=== PATIENT | female | born 1990 | race African-American/Black ===

== ENCOUNTER 2017-05-18 15:51 | Emergency (ER) | payer OTHER ==
[2017-05-18 16:07] VITALS: BMI 23.1
--- NOTE | 2017-05-18 16:09 | PDOC ---
History of Present Illness - General Chief Complaint: Pain, Acute Stated Complaint: NAUSEA/VOMITING Time Seen by Provider: 05/18/17 16:09 Past History - Past Medical History Allergies/Adverse Reactions: Allergies Allergy/AdvReac Type Severity Reaction Status Date / Time No Known Allergies Allergy Verified 05/18/17 16:04 Home Medications: Ambulatory Orders Naproxen [Naprosyn -] 500 mg PO BID #14 tablet 09/30/14 - Psycho/Social/Smoking Cessation Hx Anxiety: No Suicidal Ideation: No Smoking Status: No Smoking History: Current every day smoker Have you smoked in the past 12 months: Yes Number of Cigarettes Smoked Daily: 4 Information on smoking cessation initiated: No Hx Alcohol Use: Yes (occasion) Substance Use Type: None *Physical Exam - Vital Signs Last Vital Signs Temp Pulse Resp BP Pulse Ox 97.9 F 88 19 126/76 100 05/18/17 16:04 05/18/17 16:04 05/18/17 16:04 05/18/17 16:04 05/18/17 16:04
--- NOTE | 2017-05-18 16:13 | PDOC ---
History of Present Illness - General Chief Complaint: Pain, Acute Stated Complaint: NAUSEA/VOMITING Time Seen by Provider: 05/18/17 16:09 History Source: Patient - History of Present Illness Timing/Duration: reports: getting worse Quality: reports: severe Abdominal Pain Onset Location: reports: generalized abdomen Past History - Past Medical History Allergies/Adverse Reactions: Allergies Allergy/AdvReac Type Severity Reaction Status Date / Time No Known Allergies Allergy Verified 05/18/17 16:04 Home Medications: Ambulatory Orders Naproxen [Naprosyn -] 500 mg PO BID #14 tablet 09/30/14 - Psycho/Social/Smoking Cessation Hx Anxiety: No Suicidal Ideation: No Smoking Status: No Smoking History: Current every day smoker Have you smoked in the past 12 months: Yes Number of Cigarettes Smoked Daily: 4 Information on smoking cessation initiated: No Hx Alcohol Use: Yes (occasion) Substance Use Type: None Review of Systems - Review of Systems Constitutional: No: Chills, Fever ABD/GI: Yes: Diarrhea, Nausea, Vomiting, Abdominal cramping. No: Blood Streaked Bowels, Constipated, Rectal Bleeding : No: Dysuria *Physical Exam - Vital Signs Last Vital Signs Temp Pulse Resp BP Pulse Ox 97.9 F 88 19 126/76 100 05/18/17 16:04 05/18/17 16:04 05/18/17 16:04 05/18/17 16:04 05/18/17 16:04 - Physical Exam General Appearance: Yes: Appropriately Dressed, Severe Distress HEENT: positive: Normal Voice. negative: Scleral Icterus (R), Scleral Icterus ( L) Neck: positive: Supple Respiratory/Chest: positive: Lungs Clear, Normal Breath Sounds. negative: Respiratory Distress Cardiovascular: positive: Regular Rate, S1, S2 Gastrointestinal/Abdominal: positive: Normal Bowel Sounds, Tender (to epigastrium and L mid abd, NT over mcburneys, No ttp to RUQ and neg murpheys), Soft. negative: Distended, Guarding, Rebound Musculoskeletal: negative: CVA Tenderness Integumentary: positive: Dry, Warm Neurologic: positive: Fully Oriented, Alert, Normal Mood/Affect ED Treatment Course - LABORATORY CBC & Chemistry Diagram: 05/18/17 16:20 05/18/17 16:20 Medical Decision Making - Medical Decision Making 05/18/17 16:14 27-year-old female, denies any past medical history, here with severe abdominal pain with numerous episodes of nausea, vomiting that started this morning. Also complaining of multiple episodes of loose stool. No hematochezia, melena, fever or chills. Denies similar episode in the past. Patient does admit to eating a brownie containing marijuana last night while drinking alcohol and states she does smoke marijuana on a near daily basis. See exam Abd pain w/ intractable n/v Cannabinoid hyperemesis syndrome vs gastritis vs pancreatitis vs appy though less likely as NT over [facility] -IVF -pain control -zofran -labs -?CT 05/18/17 17:23 Labs normal, lipase/ua still pending. Pt reports feeling sig better and appears more comfortable. Abd benign on rpt exam, continues to be NT over [facility] 05/18/17 17:59 Patient refusing Ativan or to wait for urine preg. Appears well and states she feels significantly better and would like to go home. Pt informed that her daily use of cannibus could be causing her sxs and that she should refrain from drug use 05/18/17 18:00 05/18/17 18:05 *DC/Admit/Observation/Transfer Diagnosis at time of Disposition: Nausea & vomiting Qualifiers: Vomiting type: unspecified Vomiting Intractability: intractable Qualified Code( s): R11.2 - Nausea with vomiting, unspecified - Discharge Dispostion Disposition: HOME Condition at time of disposition: Improved - Patient Instructions Additional Instructions: The cause of your symptoms could be due to marijuana use. Please refrain from substance in the future Follow up with your PMD
[2017-05-18] MEDS ORDERED: ONDANSETRON 4 MG/2 ML VIAL IVPUSH ONE (16:14)
[2017-05-18] MEDS ORDERED: SODIUM CHLORIDE 1,000 ML IV STA (16:14)
[2017-05-18] MEDS ORDERED: KETOROLAC TROMETHAMINE 30 MG/1 ML VIAL IVPUSH ONE (16:14)
[2017-05-18] MEDS ORDERED: ONDANSETRON 4 MG/2 ML VIAL ONE (16:30)
[2017-05-18] MEDS ORDERED: KETOROLAC TROMETHAMINE 30 MG/1 ML VIAL ONE (16:30)
[2017-05-18 16:44] LABS: BASOPHIL 0.3 % (0-2.0); EOSINOPHIL 0.1 % (0-4.5); MCH 27.6 pg (25.7-33.7); MCHC 33.2 g/dl (32.0-36.0); MEAN CELL VOLUME 83.2 fl (80-96); MEAN PLT VOLUME 8.4 fl (7.5-11.1); NEUTROPHILS 84.7 % (42.8-82.8); PLATELET COUNT 232 K/MM3 (134-434); RDW 15.7 % (11.6-15.6); WHITE BLOOD COUNT 5.6 K/mm3 (4.0-10.0)
[2017-05-18 17:11] LABS: ALBUMIN 4.2 g/dl (3.4-5.0); ALK PHOS 74 U/L (45-117); ANION GAP 11 (8-16); BILIRUBIN,TOTAL 0.2 mg/dL (0.2-1.0); CALCIUM 9.5 mg/dL (8.5-10.1); CO2 20 mmol/L (21-32); CREATININE 0.8 mg/dL (0.55-1.02); GLUCOSE,RANDOM 103 mg/dL (74-106); SGOT/AST 17 U/L (15-37); SGPT/ALT 24 U/L (12-78); TOT PROT 8.3 g/dl (6.4-8.2)
--- NOTE | 2017-05-18 17:28 | PDOC ---
*Physical Exam - Vital Signs Last Vital Signs Temp Pulse Resp BP Pulse Ox 97.9 F 88 19 126/76 100 05/18/17 16:04 05/18/17 16:04 05/18/17 16:04 05/18/17 16:04 05/18/17 16:04 - Physical Exam Comments: 05/18/17 17:27 The patient was examined by [ENDY Love] under my direct supervision. I personally evaluated the patient. I concur with the above findings and the plan of care. ED Treatment Course - LABORATORY CBC & Chemistry Diagram: 05/18/17 16:20 05/18/17 16:20 - ADDITIONAL ORDERS Additional order review: Laboratory Results 05/18/17 05/18/17 17:10 16:20 Sodium 139 Potassium 3.7 Chloride 108 H Carbon Dioxide 20 L Anion Gap 11 BUN 8 D Creatinine 0.8 D Creat Clearance w eGFR > 60 Random Glucose 103 D Calcium 9.5 Total Bilirubin 0.2 D AST 17 D ALT 24 D Alkaline Phosphatase 74 Total Protein 8.3 H Albumin 4.2 Lipase 60 L 05/18/17 16:20 RBC 4.63 MCV 83.2 MCHC 33.2 RDW 15.7 H D MPV 8.4 Neutrophils % 84.7 H Lymphocytes % 10.4 D Monocytes % 4.5 Eosinophils % 0.1 Basophils % 0.3 - Medications Given in the ED: ED Medications Discontinued Medications Generic Name Dose Route Start Last Admin Trade Name Freq PRN Reason Stop Dose Admin Sodium Chloride 1,000 mls @ 1,000 mls/hr 05/18/17 16:14 05/18/17 16:46 Normal Saline - IV 05/18/17 17:13 1,000 mls/hr ASDIR STA Administration Ketorolac Tromethamine 30 mg 05/18/17 16:14 05/18/17 16:46 Toradol Injection - IVPUSH 05/18/17 16:15 30 mg ONCE ONE Administration Ondansetron HCl 4 mg 05/18/17 16:14 05/18/17 16:46 Zofran Injection IVPUSH 05/18/17 16:15 4 mg ONCE ONE Administration *DC/Admit/Observation/Transfer Diagnosis at time of Disposition: Nausea & vomiting - Discharge Dispostion Disposition: HOME Condition at time of disposition: Improved - Referrals Referrals: Mat Padron [Primary Care Provider] - - Patient Instructions Additional Instructions: The cause of your symptoms could be due to marijuana use. Please refrain from substance in the future Follow up with your PMD
[2017-05-18] MEDS ORDERED: LORazepam 1 MG TABLET PO ONE (17:56)
[2017-05-18] MEDS ORDERED: LORazepam 0.5 MG TABLET ONE (17:56)
[2017-05-18 18:15] VITALS: BP 122/66; PULSE 78; TEMP 98.6
== END 2017-05-18 18:13 | disposition home or self-care (01) ==
LOC: JER 15:51
PROC: 3E0333Z Introduction of Anti-inflammatory into Peripheral Vein, Percutaneous Approach (ICD-10-PCS; principal; 2017-05-18)
PROC: 3E033GC Introduction of Other Therapeutic Substance into Peripheral Vein, Percutaneous Approach (ICD-10-PCS; 2017-05-18)
PROC: 3E0337Z Introduction of Electrolytic and Water Balance Substance into Peripheral Vein, Percutaneous Approach (ICD-10-PCS; 2017-05-18)
DX: R11.2 Nausea with vomiting, unspecified (principal); F17.210 Nicotine dependence, cigarettes, uncomplicated
CPT/HCPCS: 36415; 80053; 83690; 84703; 85025; 96361; 96374; 96375; 99283-25

== ENCOUNTER 2019-07-29 09:10 | Inpatient (IN) | payer OTHER ==
[~2019-07-29 09:10] MED LIST: CITRIC ACID/SODIUM CITRATE 30 ML UNIT-DOSE CUP PO ONE; ELECTROLYTE-148 SOLN 1,000 ML IV SCH
[2019-07-29 09:52] VITALS: BMI 28.7
[2019-07-29] MEDS ORDERED: ELECTROLYTE-148 SOLN 1,000 ML IV SCH ×2 (10:10→10:45)
[2019-07-29] MEDS ORDERED: CITRIC ACID/SODIUM CITRATE 30 ML UNIT-DOSE CUP PO ONE (10:43)
--- NOTE | 2019-07-29 10:50 | HP ---
Past Medical History - Primary Care Physician PCP:: Michael Bernardo - Admission Chief Complaint: 39 weeks, previous c/s, request of repeat c/s History of Present Illness: 29 yo f edc by sono 07/30/19 39.6 weeks, with one previous c/s , request of repeat c/s, encourged , risks associated with C/S discussed, cx clp vx -3 mi , fhr cat1 History Source: Patient Limitations to Obtaining History: No Limitations - Past Medical History ...: 5 ...Para: 1 ...Term: 1 ...: 0 ...Spon : 0 ...Induced : 3 ...LMP: 10/23/18 ... Weeks Gestation by Dates: 39.6 ...EDC by Dates: 07/30/19 ...EDC by Sono: 07/30/19 Heme/Onc: Yes: Anemia - Past Surgical History Past Surgical History: Yes: Hx Myomectomy: No Hx Transabdominal Cerclage: No - Smoking History Smoking history: Never smoked Have you smoked in the past 12 months: No Aproximately how many cigarettes per day: 4 - Alcohol/Substance Use Hx Alcohol Use: No - Social History Usual Living Arrangement: Yes: With Spouse History of Recent Travel: No Home Medications - Allergies Allergies/Adverse Reactions: Allergies Allergy/AdvReac Type Severity Reaction Status Date / Time No Known Allergies Allergy Verified 07/29/19 09:53 - Home Medications Home Medications: Ambulatory Orders NK [No Known Home Medication] 07/19/19 Review of Systems - Review of Systems Constitutional: reports: No Symptoms Eyes: reports: No Symptoms HENT: reports: No Symptoms Neck: reports: No Symptoms Cardiovascular: reports: No Symptoms Respiratory: reports: No Symptoms Gastrointestinal: reports: No Symptoms Genitourinary: reports: No Symptoms Breasts: reports: No Symptoms Reported Musculoskeletal: reports: No Symptoms Integumentary: reports: No Symptoms Neurological: reports: No Symptoms Endocrine: reports: No Symptoms Hematology/Lymphatic: reports: No Symptoms Psychiatric: reports: No Symptoms Physical Exam - Maternity Vital Signs: Vital Signs Temperature 98.4 F 07/29/19 09:10 Pulse Rate 81 07/29/19 09:10 Respiratory Rate 18 07/29/19 09:10 Blood Pressure 134/86 07/29/19 09:10 O2 Sat by Pulse Oximetry (%) Constitutional: Yes: Well Nourished, No Distress, Calm Eyes: Yes: WNL, Conjunctiva Clear, EOM Intact HENT: Yes: WNL, Atraumatic, Normocephalic Neck: Yes: WNL, Supple, Trachea Midline Cardiovascular: Yes: WNL, Regular Rate and Rhythm Breast(s): Yes: WNL - Abdominal Exam/OB Fundal Height: 38 Number of Fetuses: Single Presentation: Vertex Contractions: Yes Regularity: Irregular Intensity: Unaware Monitor Mode: External Heart Rate Location: [facility] Category: I Accelerations: Non-Uniform Decelerations: None - Vaginal Exam/OB Vaginal Bleediing: No Speculum Exam: No Dilatation (cm): 0 Effacement (%): 0 Amniotic Membrane Status: Intact Presentation: Vertex/Position Station: -3 - Physical Exam Musculoskeletal: Yes: WNL Extremities: Yes: WNL Edema: Yes Edema: LLE: Trace, RLE: Trace Deep Tendon Reflex Grade: Normal +2 Psychiatric: Yes: WNL Hemorrhage Risk Assessment - Risk Factors Medium Risk Factors: Yes: Prior , uterine surgery,or multiple laparotomies High Risk Factors: Yes: None Risk Score: 1 Risk Level: Medium Risk Problem List - Problems (1) with 39 completed weeks gestation Code(s): Z3A.39 - 39 WEEKS GESTATION OF (2) Previous section complicating Code(s): O34.219 - MATERNAL CARE FOR UNSP TYPE SCAR FROM PREVIOUS DEL Assessment/Plan repeat c/s , risks discussed ,
[2019-07-29] MEDS ORDERED: morphine SULFATE/PF 0.5 MG/ML (2cc Syringe - QUVA) ONE (10:51)
[2019-07-29] MEDS ORDERED: ceFAZolin SODIUM 1 GM VIAL ONE ×2 (11:04)
[2019-07-29] MEDS ORDERED: ONDANSETRON 4 MG/2 ML VIAL IVPUSH PRN (11:06)
[2019-07-29] MEDS ORDERED: METHYLERGONOVINE MALEATE 0.2 MG/1 ML AMP IM PRN (11:51)
[2019-07-29] MEDS ORDERED: BENZOCAINE 28 GM HEMORRHOIDAL OINTMENT PR PRN (11:51)
[2019-07-29] MEDS ORDERED: BENZOCAINE 20% 57 GM BOTTLE TP PRN (11:51)
[2019-07-29] MEDS ORDERED: diphenhydrAMINE HCL 25 MG CAPSULE (FP) PO PRN (11:51)
[2019-07-29] MEDS ORDERED: WITCH HAZEL 50% (TUCKS) 40 PAD/JAR PAD TP PRN (11:51)
--- NOTE | 2019-07-29 11:56 | OP ---
Operative Note - Note: Operative Date: 07/29/19 Pre-Operative Diagnosis: 39 weeks , previous c/s Operation: repeat LST c/s Findings: live baby girl 9/9 , both tubes and ovary normal Surgeon: Michael Bernadro Music Critic: Felton Yen Anesthesiologist/BLOCKER HAND: Mundo Nina Anesthesia: Spinal Specimens Removed: placenta Estimated Blood Loss (mls): 500 Drains & Tubes with Location: [place] Operative Report Dictated: Yes
[2019-07-29] MEDS ORDERED: OXYTOCIN 20 UNITS in 0.9% NS 20 UNIT/1,000 ML INFUS.BAG IV SCH (12:00)
[2019-07-29] MEDS: IBUPROFEN 800 MG/8 ML IJ IVPB PRN ×2 (12:25→19:58)
[2019-07-29] MEDS: DEXTROSE 5%-LACTATED RINGERS 1,000 ML IV SCH (13:12)
[2019-07-29] MEDS: CEFAZOLIN 1 GM/D5W 1 GM/50 ML BAG IVPB SCH (17:32)
[2019-07-29] MEDS ORDERED: CEFAZOLIN 1 GM/D5W 1 GM/50 ML BAG IVPB SCH (18:00)
--- NOTE | 2019-07-30 00:31 | PN ---
Post Progress Note - Subjective Subjective: Patient without acute complaints. Tolerating clears, without nausea or vomiting Hilton DC'd, voiding. Ambulating, no flatus yet. Denies fevers or chills. Pain well controlled. well Post Day: 1 Type of Delivery: Repeat C/S Vital Signs: Vital Signs Temperature 98.6 F 07/29/19 22:00 Pulse Rate 66 07/29/19 22:00 Respiratory Rate 18 07/30/19 00:00 Blood Pressure 140/85 07/29/19 22:00 O2 Sat by Pulse Oximetry (%) 98 07/29/19 21:00 Breast Exam: Yes: Soft Uterus: Yes: Fundus Firm, Fundus above umbilicus Incision: Yes: Dressing dry and intact Abdomen/GI: Yes: Abdomen soft, Abdominal Distention (mild soft), Tender (mild ) , Tolerating PO. No: Passing flatus Lochia: Yes: Rubra Lochia, amount: Moderate Extremities: Yes: Calves non-tender, Edema (trace) Activity: Ambulating Assessment/Plan 29 yo POD # 1 s/p repeat CD, afebrile, vital signs stable, doing well 1. Continue routine postoperative care. 2. Follow up AM CBC 3. Rh positive status, no rhogam indicated. 4. Encourage ambulation and incentive spirometer use 5. Continue oral pain medication 6. Anticipate discharge home postoperative day #3 or #4
[2019-07-30] MEDS: CEFAZOLIN 1 GM/D5W 1 GM/50 ML BAG IVPB SCH (01:38)
[2019-07-30] MEDS: IBUPROFEN 800 MG/8 ML IJ IVPB PRN (01:38)
[2019-07-30] MEDS: SIMETHICONE 80 MG TAB.CHEW (FP) PO PRN ×4 (07:58→22:51)
[2019-07-30] MEDS: IBUPROFEN 600 MG TABLET (FP) PO PRN ×4 (07:58→22:53)
[2019-07-30] MEDS: ACETAMINOPHEN 325 MG TABLET (FP) PO PRN ×2 (07:59→12:53)
[2019-07-30 08:24] LABS: BASO % 0.2 % (0-2.0); EOS % 1.6 % (0-4.5); HEMATOCRIT 26.2 % (32.4-45.2); HEMOGLOBIN 8.7 GM/dL (10.7-15.3); LYMPH % 15.2 % (8-40); MCH 26.7 pg (25.7-33.7); MCHC 33.3 g/dl (32.0-36.0); MEAN CELL VOLUME 80.3 fl (80-96); MEAN PLT VOLUME 7.7 fl (7.5-11.1); MONO % 10.8 % (3.8-10.2); NEUT % 72.2 % (42.8-82.8); PLATELET COUNT 222 K/MM3 (134-434); RBC 3.26 M/mm3 (3.60-5.2); RDW 14.9 % (11.6-15.6); WHITE BLOOD COUNT 7.4 K/mm3 (4.0-10.0)
--- NOTE | 2019-07-30 08:26 | PN ---
Progress Note (short form) - Note Progress Note: Anesthesia postop note 29 y/o F s/p spinal anesthesia/ duramorph for section POD#1 vss, aaox3, pain well controlled, sensory motor intact distally No anesthesia complications.
[2019-07-30] MEDS: ENOXAPARIN NA (PORCINE) 40 MG/0.4 ML DISP.SYRIN SQ SCH (09:42)
[2019-07-30] MEDS ORDERED: BISACODYL 10 MG SUPP.RECT PR PRN (11:51)
[2019-07-30] MEDS: oxyCODONE HCL 5 MG TABLET PO PRN ×2 (17:09→22:51)
[2019-07-31] MEDS: oxyCODONE HCL 5 MG TABLET PO PRN ×3 (08:42→21:46)
[2019-07-31] MEDS: SIMETHICONE 80 MG TAB.CHEW (FP) PO PRN ×3 (08:42→21:49)
[2019-07-31] MEDS: IBUPROFEN 600 MG TABLET (FP) PO PRN ×3 (08:42→21:48)
[2019-07-31] MEDS: ENOXAPARIN NA (PORCINE) 40 MG/0.4 ML DISP.SYRIN SQ SCH (10:00)
--- NOTE | 2019-07-31 16:17 | PN ---
Progress Note (short form) - Note Progress Note: pod 2. s/p repeat c/s. ambulating , doing well, no dizziness , no excess vaginal bleeding CBC, BMP 07/30/19 08:07 Last Vital Signs Temp Pulse Resp BP Pulse Ox 98.5 F 81 20 134/89 98 07/31/19 09:00 07/31/19 09:00 07/31/19 09:00 07/31/19 09:00 07/29/19 21:00 abdomen soft, no distension, no cva incision dry, clean no calf tenderness lochia mild impression anemia, asymptomatic, will repeat cbc in am iron, vit Problem List - Problems (1) with 39 completed weeks gestation Code(s): Z3A.39 - 39 WEEKS GESTATION OF (2) Previous section complicating Code(s): O34.219 - MATERNAL CARE FOR UNSP TYPE SCAR FROM PREVIOUS DEL
--- NOTE | 2019-07-31 17:15 | PATH ---
Surgical Pathology Report Patient Name: ZARIA CANELA Med. Rec. 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 Specimen(s) Received PLACENTA Clinical History , term 1, induced AB x3, previous 2010 Final Diagnosis PLACENTA, SECTION: 689 G THIRD TRIMESTER PLACENTA WITH TRIVASCULAR UMBILICAL CORD AND UNREMARKABLE PLACENTAL MEMBRANES. Electronically Signed Carey Vale M.D. Gross Description The specimen is received fresh labeled placenta and is a 689 gram, 19.0 x 16.5 x 2.8 cm. placenta with attached membranes and umbilical cord. The attached membranes are perez, translucent with focal opacities and insert marginally. The umbilical cord measures 41 cm. in length and averages 1 cm. in diameter. The cord inserts eccentrically, 6 cm. to the nearest margin. No true knots or strictures are identified. Cut surface of the umbilical cord reveals 3 vessels. The surface is darling-blue with minimal fibrin deposition and appropriate caliber vessels. The maternal surface is red-brown with focal defects. Sectioning reveals red-brown, spongy parenchyma. No lesions are identified. Electric Detector Operator sections are submitted in three cassettes as follows: 1- membrane rolls and umbilical cord; 2-3- full thickness sections of placenta. /07/30/2019 saudi07/30/2019
[2019-07-31] MEDS: DEXTROSE 5%-LACTATED RINGERS 1,000 ML IV SCH (20:13)
[2019-07-31] MEDS: ACETAMINOPHEN 325 MG TABLET (FP) PO PRN (21:47)
[2019-07-31] MEDS ORDERED: SENNOSIDES/DOCUSATE COMBO (SENNA PLUS) TABLET (UD) PO PRN (22:00)
[2019-08-01 07:35] LABS: BASO % 0.3 % (0-2.0); EOS % 3.4 % (0-4.5); LYMPH % 27.2 % (8-40); MCH 26.7 pg (25.7-33.7); MCHC 33.2 g/dl (32.0-36.0); MEAN CELL VOLUME 80.4 fl (80-96); MEAN PLT VOLUME 7.8 fl (7.5-11.1); NEUT % 59.1 % (42.8-82.8); PLATELET COUNT 255 K/MM3 (134-434); RBC 2.99 M/mm3 (3.60-5.2); RDW 15.1 % (11.6-15.6); WHITE BLOOD COUNT 5.6 K/mm3 (4.0-10.0)
[2019-08-01] MEDS: IBUPROFEN 600 MG TABLET (FP) PO PRN ×3 (08:00→20:44)
[2019-08-01] MEDS: oxyCODONE HCL 5 MG TABLET PO PRN (08:00)
[2019-08-01] MEDS: SIMETHICONE 80 MG TAB.CHEW (FP) PO PRN (08:01)
--- NOTE | 2019-08-01 08:06 | PN ---
Post Progress Note - Subjective Subjective: Patient without acute complaints. Reports tolerating oral intake without nausea or vomiting. Ambulating without dizziness. Denies fevers or chills. Pain well controlled with oral pain medication. without difficulty. Passing flatus. Post Day: 3 Type of Delivery: Repeat C/S Vital Signs: Vital Signs Temperature 98.0 F 07/31/19 22:00 Pulse Rate 82 07/31/19 22:00 Respiratory Rate 18 07/31/19 22:00 Blood Pressure 117/70 07/31/19 22:00 O2 Sat by Pulse Oximetry (%) 98 07/29/19 21:00 Breast Exam: Yes: Soft Uterus: Yes: Fundus Firm, Fundus below umbilicus Incision: Yes: Sal intact. No: Redness, Oozing Abdomen/GI: Yes: Abdomen soft, Abdominal Distention (mild soft), Tender (mild), Passing flatus, Tolerating PO Lochia: Yes: Rubra Lochia, amount: Moderate Extremities: Yes: Calves non-tender, Edema (trace) Activity: Ambulating - Labs Labs: CBC WBC 7.4 K/mm3 (4.0-10.0) 07/30/19 08:07 RBC 3.26 M/mm3 (3.60-5.2) L 07/30/19 08:07 Hgb 8.7 GM/dL (10.7-15.3) L 07/30/19 08:07 Hct 26.2 % (32.4-45.2) L 07/30/19 08:07 MCV 80.3 fl (80-96) 07/30/19 08:07 MCH 26.7 pg (25.7-33.7) 07/30/19 08:07 MCHC 33.3 g/dl (32.0-36.0) 07/30/19 08:07 RDW 14.9 % (11.6-15.6) 07/30/19 08:07 Plt Count 222 K/MM3 (134-434) 07/30/19 08:07 MPV 7.7 fl (7.5-11.1) 07/30/19 08:07 Absolute Neuts (auto) 5.4 K/mm3 (1.5-8.0) 07/30/19 08:07 Neutrophils % 72.2 % (42.8-82.8) 07/30/19 08:07 Lymphocytes % 15.2 % (8-40) D 07/30/19 08:07 Monocytes % 10.8 % (3.8-10.2) H 07/30/19 08:07 Eosinophils % 1.6 % (0-4.5) 07/30/19 08:07 Basophils % 0.2 % (0-2.0) 07/30/19 08:07 Nucleated RBC % 0 % (0-0) 07/30/19 08:07 Assessment/Plan 29 yo POD # 3 s/p repeat CD, afebrile, vital signs stable, asymptomatic anemia, doing well 1. Continue routine postoperative care. 2. Encourage ambulation and incentive spirometer use 3. Continue oral pain medication 4. Anticipate discharge home postoperative day #4
--- NOTE | 2019-08-01 08:08 | DS ---
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 Vital Signs: Vital Signs Temperature 98.0 F 07/31/19 22:00 Pulse Rate 82 07/31/19 22:00 Respiratory Rate 18 07/31/19 22:00 Blood Pressure 117/70 07/31/19 22:00 O2 Sat by Pulse Oximetry (%) 98 07/29/19 21:00 Delivery - Delivery Type of Anesthesia: Spinal EBL (cc): 500 Delivery, Single - Stages of Labor Date of Delivery: 07/29/19 Time of Delivery: 11:19 Time Placenta Delivered: 11:21 - Condition of Infant Decker Operator/Signal Wirer Present: Yes Name: Moni Bejarano Gender: Female Weight: 7 lb 7 oz Position: Right, OT Total Hours ROM (Hrs/Mins): 4 minutes - 1 Minute Total Score: 9 5 Minutes Total Score: 9 - Feeding Plan Initial Plan: Exclusive throughout hospitalization Discharge Summary Problems reviewed: Yes Reason For Visit: REPEAT Current Active Problems with 39 completed weeks gestation (Acute) Previous section complicating (Acute) Procedures: Principal: repeat Delivery Hospital Course: Patient was admitted for routine delivery POD # 1 patient ambulated, voiding, passing gas, tolerating oral intake and with adequate pain control. Noted to have mild asymptomatic anemia She fulfilled all criteria for discharge POD #3 Condition: Good - Instructions Diet, Activity, Other Instructions: Follow up Next week for staple removal Physical activity Resume your normal everyday activity as tolerated no heavy lifting or exercise until seen by your surgeon. You may walk unlimited henry of and climb stairs. You may resume driving the car when you feel safe and comfortable behind the wheel. No sexual activity as instructed. Wound care If you have a bandage, leave it on, and keep dry for 48-72 hours. After that time discard the outer bandage. If they are tapes on the skin under the out of bandage leave them in place. They will peel off in the next 7 to 10 days. Do Not Peel them off. You may shower the day after surgery. If there are tapes present on the skin, you may shower over them. Diet There are no dietary restrictions. Eat healthy, high-fiber foods. Drink 6 to 8 glasses of liquid each day. This will assist in keeping your bowels are regular. Pain management You may take Tylenol or acetaminophen or Ibuprofen (for example, Motrin, Advil etc.) from my pain prescription medication is ordered should be taken as prescribed for moderate to severe pain. Call MD for any of the following: Severe pain not relieved by medication Fever of 101 or higher Excessive bleeding or drainage on dressing Inability to urinate Referrals: Michael Bernardo MD [Staff Physician] - Disposition: HOME - Home Medications Comprehensive Discharge Medication List: Ambulatory Orders NK [No Known Home Medication] 07/19/19
[2019-08-01] MEDS: ENOXAPARIN NA (PORCINE) 40 MG/0.4 ML DISP.SYRIN SQ SCH (09:27)
[2019-08-01] MEDS: ACETAMINOPHEN 325 MG TABLET (FP) PO PRN ×2 (14:31→20:44)
[2019-08-02] MEDS: SIMETHICONE 80 MG TAB.CHEW (FP) PO PRN ×2 (04:33→12:31)
[2019-08-02] MEDS: ACETAMINOPHEN 325 MG TABLET (FP) PO PRN ×2 (04:33→12:32)
[2019-08-02] MEDS: IBUPROFEN 600 MG TABLET (FP) PO PRN ×2 (04:34→12:31)
[2019-08-02] MEDS: ENOXAPARIN NA (PORCINE) 40 MG/0.4 ML DISP.SYRIN SQ SCH (09:04)
[2019-08-02 10:13] VITALS: BP 137/84; PULSE 76; TEMP 98.1
--- NOTE | 2019-08-02 10:37 | PN ---
Post Progress Note - Subjective Subjective: Patient without acute complaints. Reports tolerating oral intake without nausea or vomiting. Ambulating without dizziness. Denies fevers or chills. Pain well controlled with oral pain medication. without difficulty. Passing flatus, + BM Post Day: 4 Type of Delivery: Repeat C/S Vital Signs: Vital Signs Temperature 98.1 F 08/02/19 10:00 Pulse Rate 76 08/02/19 10:00 Respiratory Rate 18 08/02/19 10:00 Blood Pressure 137/84 08/02/19 10:00 O2 Sat by Pulse Oximetry (%) 98 07/29/19 21:00 Breast Exam: Yes: Engorged Uterus: Yes: Fundus Firm Incision: Yes: [place] intact, Redness, Oozing Abdomen/GI: Yes: Abdomen soft, Tender (mild incisinoal ), Passing flatus, Tolerating PO. No: Abdominal Distention Lochia: Yes: Rubra Lochia, amount: Moderate Extremities: Yes: Calves non-tender, Edema (trace) Activity: Ambulating - Labs Labs: CBC WBC 5.6 K/mm3 (4.0-10.0) 08/01/19 06:00 RBC 2.99 M/mm3 (3.60-5.2) L 08/01/19 06:00 Hgb 8.0 GM/dL (10.7-15.3) L 08/01/19 06:00 Hct 24.0 % (32.4-45.2) L 08/01/19 06:00 MCV 80.4 fl (80-96) 08/01/19 06:00 MCH 26.7 pg (25.7-33.7) 08/01/19 06:00 MCHC 33.2 g/dl (32.0-36.0) 08/01/19 06:00 RDW 15.1 % (11.6-15.6) 08/01/19 06:00 Plt Count 255 K/MM3 (134-434) 08/01/19 06:00 MPV 7.8 fl (7.5-11.1) 08/01/19 06:00 Absolute Neuts (auto) 3.3 K/mm3 (1.5-8.0) 08/01/19 06:00 Neutrophils % 59.1 % (42.8-82.8) 08/01/19 06:00 Lymphocytes % 27.2 % (8-40) D 08/01/19 06:00 Monocytes % 10.0 % (3.8-10.2) 08/01/19 06:00 Eosinophils % 3.4 % (0-4.5) D 08/01/19 06:00 Basophils % 0.3 % (0-2.0) 08/01/19 06:00 Nucleated RBC % 0 % (0-0) 08/01/19 06:00 Assessment/Plan 29 yo POD # 4 s/p repeat CD, afebrile, vital signs stable, asymptomatic anemia, doing well 1. Patient stable for discharge home today. 2. Patient encouraged to contact MD for: - Severe pain not controlled by oral pain medication - Fevers or chills - Nausea or vomiting, intolerance of oral intake - Incision redness, tenderness or discharge 3. Patient to follow up in office next week for staple removal, 4-6 weeks for visit
--- NOTE | 2019-08-03 15:51 | OP ---
DATE OF OPERATION: 07/29/2019 PREOPERATIVE DIAGNOSIS: at 39 weeks, previous section and request for repeat section. POSTOPERATIVE DIAGNOSIS: at 39 weeks, previous section and request for repeat section. PROCEDURE: Repeat low segment transverse section. FINDINGS: A live baby girl, Apgars 9, 9. Both tubes and ovaries were normal. SURGEON: Michael Bernardo MD SCRIPT READER: ANESTHESIOLOGIST: Mundo Nina MD ESTIMATED BLOOD LOSS: 500 mL. OPERATIVE COURSE: Patient was taken to the operating room. Under adequate spinal anesthesia abdomen and perineum were prepped and draped. Pfannenstiel abdominal incision was made. Abdominal wall was cut layer by layer until peritoneum was exposed and incised. Upon entering the abdominal cavity the lower uterine segment was identified and uterovesical fold of peritoneum established. Bladder was pushed down. Then with the lower blade of the Lanette retractor in the pelvis a low transverse uterine incision was made. The incision extended laterally. Amniotic sac was entered. Clear fluid. Head delivered. Nasopharynx was suctioned and live baby delivered without any difficulty. Placenta was delivered manually. Uterine cavity was cleaned of all remaining tissue. Uterine incision was closed in 2 layers, 1st layer with 0 Biosyn continuous suture, the 2nd layer with 0 Biosyn imbricating the 1st layer. Bladder flap was closed with 0 Biosyn continuous suture. Both tubes and ovaries were checked, were normal. No active bleeding was seen. All the lap pad, sponge and instrument counts were correct. Then peritoneum was closed with 0 Biosyn continuous suture and muscle layer brought together with interrupted suture of 0 Biosyn. Fascia was closed with 0 Biosyn continuous suture, subcutaneous fat with interrupted suture of 0 Biosyn and the skin was closed with olu. Patient tolerated procedure well, left the OR in good condition. Sara [id number]
== END 2019-08-02 13:55 | disposition home or self-care (01) | DRG 540 ==
LOC: JLDR 09:10 → J3W 13:45
PROVIDERS: ADMIT Obstetrics & Gynecology; ATTEND Obstetrics & Gynecology
PROC: 10D00Z1 Extraction of Products of Conception, Low, Open Approach (ICD-10-PCS; principal; 2019-07-29)
DX: O34.211 Maternal care for low transverse scar from previous cesarean delivery (principal); O99.02 Anemia complicating childbirth; D64.9 Anemia, unspecified; Z3A.39 39 weeks gestation of pregnancy; Z37.0 Single live birth
CPT/HCPCS: 36415; 80048; 85025; 85610; 85730; 86593; 86850; 86900; 86901; 88307-TC